=== PATIENT | female | born 1980 | race Caucasian/White ===

== ENCOUNTER 2017-01-04 00:25 | Emergency (ER) | payer OTHER ==
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
[~2017-01-04 00:25] MED LIST: APNO TOP; DERMOPLAST SPRA56 GM TOP; MOTRIN800 MG PO; PERCOCET 5-3251 EACH PO; PRENATAL 1+1)(P1 TAB PO; ZYRTEC10 MG PO
== END 2017-01-04 01:04 | disposition disaster alternative care site (69) ==
LOC: GMED 00:25
DX: Z04.1 Encounter for examination and observation following transport accident (principal); V89.2XXA Person injured in unspecified motor-vehicle accident, traffic, initial encounter